=== PATIENT | female | born 1950 | race Caucasian/White ===

== ENCOUNTER 2021-03-19 17:16 | Emergency (ER) | payer MEDICARE ==
[2021-03-19 18:18] LABS: Hemoglobin 14.4 g/dL (12.0-15.5); Mean Corpuscular HGB CONC 32.8 g/dL (32.0-36.0); Mean Corpuscular Volume 85.4 fl (81.6-98.3); Mean Platelet Volume 9.5 fl (7.4-10.4); Platelet Count 264 10x3/uL (150-450); Red Blood Cell (RBC) Count 5.14 10x6/uL (3.90-5.03); White Blood Cell (WBC) Count 7.6 10x3/uL (3.5-10.5)
[2021-03-19 18:25] LABS: ALT (SGPT) 33 U/L (8-55); AST (SGOT) 35 U/L (5-34); Albumin 3.9 g/dL (3.4-4.8); Alkaline Phosphatase 90 U/L (40-110); Anion Gap 16 mmol/L (10-20); BUN (Urea Nitrogen) 19 mg/dL (9.8-20.1); Bilirubin, Total 0.4 mg/dL (0.2-1.2); Calc. Creatinine Clearance 0 mL/min (70-130); Carbon Dioxide 23 mmol/L (23-31); Chloride 102 mmol/L (98-107); Globulin 3.3 g/dL (2.4-3.5); Glucose 134 mg/dL (83-110); Lipase 40 U/L (8-78); Potassium 3.9 mmol/L (3.5-5.1); Protein, Total 7.2 g/dL (5.8-8.1); Sodium 137 mmol/L (136-145)
[2021-03-19 18:44] LABS: Eosinophils 1 % (0-10); Lymphocytes 11 % (21-51); MDiff Complete? YES; Monocytes 16 % (0-10); Neutrophil 71 % (42-75); Reactive Lymphocytes 1 % (0-10)
[2021-03-19 18:45] LABS: Platelet Morphology Comment Appears Adequate; RBC Morphology Normal
[2021-03-19 20:47] LABS: Bilirubin Neg (Negative); Blood, Urine 150 (Negative); Clarity Slightly Cloudy (Clear); Glucose, Urine (Dipstick) Normal (Negative); Ketone, Urine 15 mg/dL (Negative); Leukocyte Negative (Negative); Nitrite Negative (Negative); Protein, Urine (Dipstick) 100 mg/dl (Neg-Trace); Urobilinogen Normal mg/dL (Less than 2)
[2021-03-19] MEDS ORDERED: Ondansetron PF 4 MG/2 ML Vial ONE (20:57)
[2021-03-19 20:59] LABS: Renal Epithelial 0-3 HPF (None Seen)
[2021-03-19 21:00] LABS: Bacteria/HPF None Seen HPF (None Seen); White Blood Cell Cast 0-3 LPF (None Seen)
[2021-03-19 21:02] LABS: Calcium Oxalate Crystals 1+ HPF (None Seen)
[2021-03-20 15:09] LABS: SARS-CoV-2 PCR by NAA DETECTED (NotDetected)
== END 2021-03-19 22:46 | disposition home or self-care (01) ==
LOC: CSHERS 17:16
DX: U07.1 COVID-19 (principal); K52.9 Noninfective gastroenteritis and colitis, unspecified; I10 Essential (primary) hypertension; E11.9 Type 2 diabetes mellitus without complications; I48.91 Unspecified atrial fibrillation
CPT/HCPCS: 74177; 80053; 83690; 85025; U0003; U0005; 81003; 81015; 96374; J2405

== ENCOUNTER 2022-01-20 14:47 | Observation (INO) | payer MEDICARE ==
[2022-01-20 16:38] LABS: #Basophils 0.1 10x3/uL (0.0-0.2); #Eosinphils 0.4 10x3/uL (0.0-0.5); #Neutrophils 8.7 10x3/uL (1.5-8.4); %Basophils 0.5 % (0.0-2.0); %Eosinophils 3.6 % (0.0-6.0); %Lymphocytes 13.1 % (18.0-47.0); %Monocytes 8.2 % (0.0-10.0); %Neutrophils 73.8 % (40.0-75.0); Hemoglobin 13.4 g/dL (12.0-15.5); Mean Corpuscular HGB CONC 33.4 g/dL (32.0-36.0); Mean Corpuscular Hemoglobin 29.8 pg (27.0-33.0); Mean Corpuscular Volume 89.3 fl (81.6-98.3); Mean Platelet Volume 9.5 fl (7.4-10.4); Platelet Count 306 10x3/uL (150-450); Red Blood Cell (RBC) Count 4.49 10x6/uL (3.90-5.03); White Blood Cell (WBC) Count 11.8 10x3/uL (3.5-10.5)
[2022-01-20 16:56] LABS: PTT 27.9 sec (22.0-33.0); Prothrombin Time 10.4 sec (9.5-12.1)
[2022-01-20 16:59] LABS: ALT (SGPT) 14 U/L (8-55); AST (SGOT) 14 U/L (5-34); Albumin 4.1 g/dL (3.4-4.8); Alkaline Phosphatase 87 U/L (40-110); Anion Gap 14 mmol/L (10-20); BUN (Urea Nitrogen) 27 mg/dL (9.8-20.1); Bilirubin, Total 0.2 mg/dL (0.2-1.2); Calc. Creatinine Clearance 0 mL/min (70-130); Calcium 9.5 mg/dL (7.8-10.44); Carbon Dioxide 24 mmol/L (23-31); Chloride 106 mmol/L (98-107); Estimated GFR 60; Globulin 2.4 g/dL (2.4-3.5); Glucose 136 mg/dL (83-110); Potassium 4.4 mmol/L (3.5-5.1); Protein, Total 6.5 g/dL (5.8-8.1); Sodium 140 mmol/L (136-145)
[2022-01-20 17:48] LABS: Bilirubin Neg (Negative); Blood, Urine Negative (Negative); Clarity Clear (Clear); Glucose, Urine (Dipstick) Normal (Negative); Ketone, Urine Negative (Negative); Leukocyte 100 (Negative); Nitrite Negative (Negative); Protein, Urine (Dipstick) Negative (Neg-Trace); Specific Gravity, Urine 1.025 (1.005-1.030); Urobilinogen Normal mg/dL (Less than 2)
[2022-01-20 18:15] LABS: Bacteria/HPF Rare-Few HPF (None Seen); RBC/HPF 0-3 HPF (0-3); Squamous Epithelial 0-3 HPF (0-3)
[2022-01-20] MEDS ORDERED: Dextrose 50% Abboject 50 ML SYRINGE SLOW IVP PRN (21:59)
[2022-01-20] MEDS ORDERED: Senokot S 8.6-50 MG TAB PO PRN (21:59)
[2022-01-20] MEDS ORDERED: Acetaminophen 325 MG TAB PO PRN (21:59)
[2022-01-20] MEDS ORDERED: HumaLOG 300 UNITS/3 ML VIAL SC PRN (21:59)
[2022-01-20] MEDS ORDERED: Guaifenesin DM 100-10/5 ML UDCUP PO PRN (21:59)
[2022-01-20] MEDS ORDERED: Dextrose 5% in Water 1,000 ML IV PRN (21:59)
[2022-01-20] MEDS ORDERED: Calcium Carbonate 500 MG ChewTAB PO PRN (21:59)
[2022-01-20] MEDS ORDERED: Ondansetron PF 4 MG/2 ML Vial IVP PRN (21:59)
[2022-01-20] MEDS ORDERED: Albuterol Sulfate 2.5 mg/3 ml Neb NEB PRN (22:02)
[2022-01-20] MEDS ORDERED: Apixaban 2.5 MG TAB PO SCH (22:15)
[2022-01-20] MEDS ORDERED: cefTRIAXone\\ROCEPHIN 1 GM VIAL ONE (22:16)
[2022-01-20] MEDS ORDERED: Apixaban 5 MG TAB ONE (22:16)
[2022-01-20] MEDS ORDERED: Lactated Ringer's 1,000 ML IV SCH (22:30)
[2022-01-20] MEDS ORDERED: cefTRIAXone\\ROCEPHIN 1 GM in Sodium Chloride 0.9% 100 ML IVPB SCH (22:30)
[2022-01-21] MEDS ORDERED: Ondansetron PF 4 MG/2 ML Vial ONE (02:00)
[2022-01-21] MEDS ORDERED: Ketorolac Tromethamine 30 MG/ML VIAL ONE (02:16)
[2022-01-21] MEDS ORDERED: HYDROcodone/Acetaminophen 5/325 mg Tablet ONE (02:17)
[2022-01-21] MEDS ORDERED: HYDROcodone/Acetaminophen 5/325 mg Tablet PO PRN ×2 (02:18)
[2022-01-21] MEDS ORDERED: Ketorolac Tromethamine 30 MG/ML VIAL IVP SCH ×2 (02:30)
[2022-01-21 04:57] LABS: Anion Gap 12 mmol/L (10-20); BUN (Urea Nitrogen) 25 mg/dL (9.8-20.1); Calc. Creatinine Clearance 0 mL/min (70-130); Calcium 9.5 mg/dL (7.8-10.44); Carbon Dioxide 25 mmol/L (23-31); Chloride 107 mmol/L (98-107); Estimated GFR 64; Glucose 110 mg/dL (83-110); Magnesium 1.9 mg/dL (1.6-2.6); Potassium 4.7 mmol/L (3.5-5.1); Sodium 139 mmol/L (136-145)
[2022-01-21 05:12] LABS: #Eosinphils 0.3 10x3/uL (0.0-0.5); #Monocytes 0.9 10x3/uL (0.0-1.1); #Neutrophils 11.9 10x3/uL (1.5-8.4); %Basophils 0.2 % (0.0-2.0); %Eosinophils 2.1 % (0.0-6.0); %Lymphocytes 6.7 % (18.0-47.0); %Monocytes 6.5 % (0.0-10.0); %Neutrophils 83.7 % (40.0-75.0); Mean Corpuscular Hemoglobin 29.3 pg (27.0-33.0); Mean Corpuscular Volume 88.9 fl (81.6-98.3); Mean Platelet Volume 9.4 fl (7.4-10.4); Platelet Count 271 10x3/uL (150-450); RBC Distribution Width 13.2 % (11.5-14.5); Red Blood Cell (RBC) Count 4.43 10x6/uL (3.90-5.03); White Blood Cell (WBC) Count 14.3 10x3/uL (3.5-10.5)
[2022-01-21] MEDS ORDERED: Amlodipine 5 MG TAB ONE (08:58)
[2022-01-21] MEDS ORDERED: Apixaban 5 MG TAB ONE (08:58)
[2022-01-21] MEDS ORDERED: Apixaban 2.5 MG TAB PO SCH (09:00)
[2022-01-21] MEDS ORDERED: Amlodipine 5 MG TAB PO SCH (09:00)
[2022-01-21] MEDS ORDERED: cefTRIAXone\\ROCEPHIN 1 GM VIAL ONE (11:47)
[2022-01-21 12:49] LABS: Hemoglobin A1c 5.6 % (4.0-6.0)
[2022-01-21] MEDS ORDERED: cefTRIAXone\\ROCEPHIN 1 GM in Sodium Chloride 0.9% 100 ML IVPB SCH (13:00)
[2022-01-21] MEDS ORDERED: Simvastatin 10 MG TAB PO SCH (21:00)
[2022-01-21] MEDS ORDERED: Ubidecarenone 50 MG CAP PO SCH (21:00)
[2022-01-21] MEDS ORDERED: Losartan Potassium 50 MG TAB PO SCH (21:00)
[2022-01-21] MEDS ORDERED: Lantus 1000 UNITS/10 ML VIAL SC SCH (21:00)
[2022-01-22] MEDS ORDERED: metFORMIN 500 MG TAB PO SCH (08:00)
== END 2022-01-21 13:38 | disposition home or self-care (01) ==
LOC: CSHERS 14:47 → INTOOBSV 20:50 → CSHERHOLD 20:50
PROVIDERS: ADMIT Student in an Organized Health Care Education/Training Program; ATTEND Nurse Practitioner Family
DX: R42 Dizziness and giddiness (principal); R00.2 Palpitations; N39.0 Urinary tract infection, site not specified; N19 Unspecified kidney failure; E66.01 Morbid (severe) obesity due to excess calories; I48.0 Paroxysmal atrial fibrillation; E11.9 Type 2 diabetes mellitus without complications; E78.5 Hyperlipidemia, unspecified; I10 Essential (primary) hypertension; Z79.899 Other long term (current) drug therapy; Z79.84 Long term (current) use of oral hypoglycemic drugs; Z79.01 Long term (current) use of anticoagulants; Z88.2 Allergy status to sulfonamides; Z91.041 Radiographic dye allergy status; Z91.018 Allergy to other foods; Z90.710 Acquired absence of both cervix and uterus; Z90.09 Acquired absence of other part of head and neck; Z85.528 Personal history of other malignant neoplasm of kidney
CPT/HCPCS: 70450; 71045; 80048; 82533; 82962; 83036; 83735; 83880; 84484 ×2; 85025; 85610; 85730; 93005; 93880; 96374; 96375; 96376; 99285; G0378 ×2; 36415; 36416; 80053; 81003; 81015; 84443; J0696; J1885; J2405; J3490; J7120

== ENCOUNTER 2022-05-01 04:34 | Observation (INO) | payer MEDICARE ==
[2022-05-01] MEDS ORDERED: HYDROcodone/Acetaminophen 5/325 mg Tablet PO PRN (05:17)
[2022-05-01] MEDS ORDERED: Calcium Carbonate 500 MG ChewTAB PO PRN (05:17)
[2022-05-01] MEDS ORDERED: Acetaminophen 325 MG TAB PO PRN (05:17)
[2022-05-01] MEDS ORDERED: Guaifenesin DM 100-10/5 ML UDCUP PO PRN (05:17)
[2022-05-01] MEDS ORDERED: Senokot S 8.6-50 MG TAB PO PRN (05:17)
[2022-05-01] MEDS ORDERED: Ondansetron PF 4 MG/2 ML Vial IVP PRN (05:17)
[2022-05-01] MEDS ORDERED: HumaLOG 300 UNITS/3 ML VIAL SC PRN (05:17)
[2022-05-01] MEDS ORDERED: Dextrose 50% Abboject 50 ML SYRINGE SLOW IVP PRN (05:17)
[2022-05-01] MEDS ORDERED: Dextrose 5% in Water 1,000 ML IV PRN (05:17)
[2022-05-01 05:28] VITALS: BMI 40.1
[2022-05-01] MEDS ORDERED: Ipratropium/Albuterol 3 ML NEB NEB PRN (05:32)
[2022-05-01] MEDS ORDERED: Ketorolac Tromethamine 30 MG/ML VIAL IVP SCH (06:00)
[2022-05-01] MEDS: Lidocaine 5% Patch TD SCH (06:13)
[2022-05-01 06:45] LABS: CRP (Inflammatory) 0.66 mg/dL (= or < 0.5); Uric Acid 5.6 mg/dL (2.6-6.0)
[2022-05-01] MEDS: metFORMIN 500 MG TAB PO SCH ×2 (10:45→16:36)
[2022-05-01] MEDS: Losartan Potassium 50 MG TAB PO SCH (10:45)
[2022-05-01] MEDS: Aspirin 81 mg Enteric Coated Tablet PO SCH (10:45)
[2022-05-01] MEDS: Famotidine 20 MG TAB PO SCH ×2 (10:46→20:55)
[2022-05-01] MEDS: Apixaban 2.5 MG TAB PO SCH ×2 (10:46→20:56)
[2022-05-01] MEDS: Amlodipine 5 MG TAB PO SCH (10:48)
[2022-05-01 10:55] LABS: Bilirubin Neg (Negative); Blood, Urine Negative (Negative); Clarity Clear (Clear); Glucose, Urine (Dipstick) Normal (Negative); Ketone, Urine Negative (Negative); Leukocyte 25 (Negative); Nitrite Negative (Negative); Protein, Urine (Dipstick) Negative (Neg-Trace); Urobilinogen Normal mg/dL (Less than 2)
[2022-05-01 11:04] LABS: Bacteria/HPF Rare-Few HPF (None Seen); RBC/HPF 0-3 HPF (0-3); Squamous Epithelial 0-3 HPF (0-3); WBC/HPF 0-3 HPF (0-3)
[2022-05-01] MEDS: HYDROcodone/Acetaminophen 10/325 mg Tablet PO PRN (16:36)
[2022-05-01] MEDS ORDERED: Transdermal Patch Removal TOP SCH (18:00)
[2022-05-01] MEDS ORDERED: Lantus 1000 UNITS/10 ML VIAL SC SCH (21:00)
[2022-05-01] MEDS ORDERED: Atorvastatin Calcium 20 MG TAB PO SCH (21:00)
[2022-05-01] MEDS ORDERED: CO Q-10 CAPSULE 50 MG PO SCH (21:00)
[2022-05-02] MEDS: HYDROcodone/Acetaminophen 10/325 mg Tablet PO PRN ×2 (04:24→09:38)
[2022-05-02 04:31] LABS: #Eosinphils 0.4 10x3/uL (0.0-0.5); #Neutrophils 9.1 10x3/uL (1.5-8.4); %Basophils 0.3 % (0.0-2.0); %Eosinophils 3.6 % (0.0-6.0); %Lymphocytes 10.7 % (18.0-47.0); %Monocytes 8.7 % (0.0-10.0); %Neutrophils 76.2 % (40.0-75.0); Hemoglobin 12.8 g/dL (12.0-15.5); Mean Corpuscular HGB CONC 32.8 g/dL (32.0-36.0); Mean Corpuscular Hemoglobin 28.9 pg (27.0-33.0); Mean Platelet Volume 9.2 fl (7.4-10.4); Platelet Count 268 10x3/uL (150-450); RBC Distribution Width 13.2 % (11.5-14.5); Red Blood Cell (RBC) Count 4.43 10x6/uL (3.90-5.03)
[2022-05-02 04:46] LABS: Anion Gap 16 mmol/L (10-20); BUN (Urea Nitrogen) 19 mg/dL (9.8-20.1); Calc. Creatinine Clearance 94 mL/min (70-130); Calcium 9.8 mg/dL (7.8-10.44); Carbon Dioxide 23 mmol/L (23-31); Chloride 105 mmol/L (98-107); Estimated GFR 65; Glucose 136 mg/dL (83-110); Potassium 4.7 mmol/L (3.5-5.1); Sodium 139 mmol/L (136-145)
[2022-05-02] MEDS: Lidocaine 5% Patch TD SCH (05:25)
[2022-05-02] MEDS: Losartan Potassium 50 MG TAB PO SCH (09:36)
[2022-05-02] MEDS: Famotidine 20 MG TAB PO SCH (09:39)
[2022-05-02] MEDS: metFORMIN 500 MG TAB PO SCH (09:39)
[2022-05-02] MEDS: Amlodipine 5 MG TAB PO SCH (09:39)
[2022-05-02] MEDS: Apixaban 2.5 MG TAB PO SCH (09:39)
[2022-05-02] MEDS: Aspirin 81 mg Enteric Coated Tablet PO SCH (09:39)
[2022-05-02 11:59] VITALS: BP 127/91; TEMP 97.9
== END 2022-05-02 11:30 | disposition home or self-care (01) ==
LOC: INTOOBSV 04:34 → CSHTELE 04:34
PROVIDERS: ADMIT Student in an Organized Health Care Education/Training Program; ATTEND Internal Medicine
DX: R07.89 Other chest pain (principal); R06.02 Shortness of breath; M25.512 Pain in left shoulder; D72.829 Elevated white blood cell count, unspecified; E66.01 Morbid (severe) obesity due to excess calories; I12.9 Hypertensive chronic kidney disease with stage 1 through stage 4 chronic kidney disease, or unspecified chronic kidney disease; N18.2 Chronic kidney disease, stage 2 (mild); J98.11 Atelectasis; J45.909 Unspecified asthma, uncomplicated; E11.22 Type 2 diabetes mellitus with diabetic chronic kidney disease; I48.0 Paroxysmal atrial fibrillation; I49.5 Sick sinus syndrome; Z68.38 Body mass index [BMI] 38.0-38.9, adult; Z95.0 Presence of cardiac pacemaker; Z79.4 Long term (current) use of insulin; Z85.528 Personal history of other malignant neoplasm of kidney; Z88.2 Allergy status to sulfonamides; Z88.1 Allergy status to other antibiotic agents; Z91.018 Allergy to other foods; Z79.899 Other long term (current) drug therapy; Z87.891 Personal history of nicotine dependence; E78.2 Mixed hyperlipidemia
CPT/HCPCS: 73030; 80048; 80061; 81001; 82962 ×2; 84484 ×2; 84550; 85025; 86140; 93306; 94760 ×2; 96374; G0378 ×2; 36415; 36416; J1815; J1885

== ENCOUNTER 2024-02-08 11:00 | Outpatient (CLI) | payer MEDICARE | END 2024-02-08 11:01 | disposition home or self-care (01) | LOC: CSHRAD 11:00 | PROVIDERS: ATTEND Specialist | DX: R06.02 Shortness of breath (principal) | CPT/HCPCS: 71046 ==